=== PATIENT | male | born 1965 | race Caucasian/White ===

== ENCOUNTER 2017-03-21 14:03 | Emergency (ER) | payer OTHER ==
[~2017-03-21] VITALS: Ht 172.7 cm; Wt 87.0 kg
[~2017-03-21 14:03] MED LIST: ASCO500T16 PO; DOXY100C2 PO; SIMV10TA2 PO; ZINC50CA3 PO
[2017-03-21 14:10] VITALS: Ht 172.7 cm; Wt 87.0 kg
[2017-03-21] MEDS ORDERED: MULTTAB5 PO (14:52)
[2017-03-21] MEDS ORDERED: ROSU20TA PO (14:52)
[2017-03-21] MEDS ORDERED: CETI10TA10 PO (14:52)
--- NOTE | 2017-03-21 15:17 | DIAGNOSTIC IMAGING REPORT ---
LEFT KNEE 3 VIEWS, LEFT FEMUR 2 VIEWS ROUTINE CLINICAL HISTORY: Left leg and knee pain. COMPARISON STUDY: None. FINDINGS: No fracture or dislocation within the left femur or left knee. Soft tissues are unremarkable. No significant knee effusion. Cartilage spaces are maintained for age. The visualized pelvic bones are intact. IMPRESSION: No fracture or dislocation within the left femur or left knee. Electronically signed by: Jas Maza M.D. 03/21/2017 3:15 PM Dictated Date/Time: 03/21/2017 3:10 PM
[2017-03-21 16:53] VITALS: BP 144/77; PULSE 91; TEMP 36.9; O2SAT 98
--- NOTE | 2017-03-21 20:37 | EMERGENCY ROOM VISIT NOTE ---
History Report prepared by Marlin: Hailey Vilchis Under the Supervision of: Dr. Michael Meneses D.O. First contact with patient: 14:08 Chief Complaint: FALL Stated Complaint: FALL History of Present Illness The patient is a 51 year old male who presents to the Emergency Room with complaints of persistent left knee pain starting earlier today. He was working at [employer] when he slipped on some water and fell 5 ft to the ground. He landed on his left knee. His knee was numb at first. The pain worsens with movement of his knee. He denies any pain in his head, neck, chest, back, or abdomen. He is not on any blood thinners. He has a history of high cholesterol. He denies any other medical problems. Patient is no other complaints at this time. No loss conscious. He did not hit anything else. Source of History: patient Onset: earlier today Position: knee (left) Quality: other (injury, pain) Timing: other (persistent) Modifying Factors (Worsening): movement Associated Symptoms: + numbness, No abdominal pain, No back pain, No chest pain, No headache, No neck pain Review of Systems See HPI for pertinent positives & negatives. A total of 10 systems reviewed and were otherwise negative. Past Medical & Surgical Medical Problems: (1) Hypercholesteremia Family History No pertinent family history stated. Social History Marital Status: Housing Status: lives with family Occupation Status: employed Current/Historical Medications Scheduled Ascorbic Acid (Ascorbic Acid), 500 MG PO DAILY Cetirizine Hcl (Zyrtec), 10 MG PO DAILY Multiple Vitamins W/ Minerals (Centrum), 1 TAB PO DAILY Rosuvastatin Calcium (Crestor), 20 MG PO DAILY Zinc Acetate (Oral) (Galzin), 50 MG PO DAILY Allergies Uncoded Allergies: Seasonal (Allergy, Mild, unknown, 03/21/17) Physical Exam Vital Signs Date Time Temp Pulse Resp B/P Pulse Ox O2 Delivery O2 Flow Rate FiO2 03/21/17 16:53 36.9 91 18 144/77 98 03/21/17 16:30 91 18 144/77 98 Room Air 03/21/17 14:10 36.9 103 18 150/90 97 Room Air Physical Exam GENERAL: alert, well appearing, well nourished, no distress, non-toxic HEAD: normal cephalic, atraumatic EYE EXAM: normal conjunctiva, PERRL and EOM's grossly intact OROPHARYNX: no exudate, no erythema, lips, buccal mucosa, and tongue normal and mucous membranes are moist EARS: TMs clear b/l NECK: supple, no nuchal rigidity, no adenopathy, non-tender CHEST: stable to compression anteriorly and posteriorly LUNGS: clear to auscultation. Normal chest wall mechanics HEART: no murmurs, S1 normal and S2 normal ABDOMEN: abdomen soft, non-tender, normo-active bowel sounds, no masses, no rebound or guarding. PELVIS: stable to compression anteriorly and posteriorly BACK: Back is symmetrical on inspection and there is no deformity, no midline tenderness, no CVA tenderness. UPPER EXTREMITIES: full active and passive range of motion of all joints without tenderness to palpation LOWER EXTREMITIES: left knee with abrasion to the inferior lateral aspect, no tenderness to the fibular head, no obvious deformity, full ROM of left hip and ankle without tenderness, gross sensation intact, no pain with flexion up to 90 degrees of knee, mild to moderate pain beyond 90 degrees, flexion extension of ankle and EHL intact. NEURO EXAM: Normal sensorium, cranial nerves II-XII grossly intact, normal speech, no gross weakness of arms, no gross weakness of legs. GCS: 15. Medical Decision & Procedures ER Provider Diagnostic Interpretation: Xray results as stated below per my and the radiologist's interpretation: LEFT KNEE 3 VIEWS, LEFT FEMUR 2 VIEWS ROUTINE CLINICAL HISTORY: Left leg and knee pain. COMPARISON STUDY: None. FINDINGS: No fracture or dislocation within the left femur or left knee. Soft tissues are unremarkable. No significant knee effusion. Cartilage spaces are maintained for age. The visualized pelvic bones are intact. IMPRESSION: No fracture or dislocation within the left femur or left knee. Electronically signed by: Jas Maza M.D. 03/21/2017 3:15 PM Dictated Date/Time: 03/21/2017 3:10 PM ED Course ED COURSE: Vital signs were reviewed and showed tachycardic rate. The patients medical record was reviewed The above diagnostic studies were performed and reviewed. ED treatments and interventions as stated above. 1411: The patient was evaluated in room C6. A complete history and physical examination was performed. 1520: Upon reevaluation, the patient is resting comfortably.I discussed my findings with the patient and he understands and agrees with the treatment plan. Based on the patients age, coexisting illnesses, exam and lab findings the decision to treat as an outpatient was made. The patient remained stable while under my care. The patient appeared well at the time of discharge. Medical Decision Differential diagnoses include major intracranial, cervical, spinal, thoracic, abdominal, pelvic and neurologic injury. Fracture, contusion, sprain, strain, laceration, abrasions included as well. Patient is a 51-year-old male that fell at work 5 feet from the air onto his left knee. He denies hitting his head or any loss consciousness. He notes his only pain is on his left knee. No large effusion. His minimal tenderness in the distal femur. No signs of trauma. Exam is completely neurologically intact. X-rays of his knee and left femur showed no obvious fractures. He was discharged with crutches and instructed not to weight-bear until his pain completely resolves. At that point he can weight-bear as tolerated. Patient was discharged follow-up with his primary care doctor. Discussed with Pt concerning signs and symptoms to watch out for. Pt was instructed to follow up with their PCP and discussed with the patient their option to return to the ED at anytime for persistent or worsening symptoms. The appropriate anticipatory guidance and out-patient management, including indications for return to the emergency department, were explained at length to the patient and understood.c Impression Primary Impression: Contusion of knee, left Scribe Attestation The scribe's documentation has been prepared under my direction and personally reviewed by me in its entirety. I confirm that the note above accurately reflects all work, treatment, procedures, and medical decision making performed by me. Departure Information Dispostion Home / Self-Care Referrals Tim Colbert M.D. (PCP) Forms HOME CARE DOCUMENTATION FORM, IMPORTANT VISIT INFORMATION Patient Instructions Contusion Bone, My [facility] Additional Instructions Please follow up with your primary care doctor with in the next 24 hours. Any worsening of your symptoms, please return to the ED immediately. This includes continuous pain over the next 3-5 days, numbness, weakness, increased swelling, or any other concerning signs or symptoms from your standpoint. Please take Motrin or Tylenol as needed for pain. Please use crutches until pain completely resolves and at that point you can start weightbearing as tolerated.
== END 2017-03-21 16:54 | disposition home or self-care (01) ==
LOC: EDBD 14:03 → C.EDC 14:05
DX: S80.02XA Contusion of left knee, initial encounter (principal); W01.0XXA Fall on same level from slipping, tripping and stumbling without subsequent striking against object, initial encounter; E78.00 Pure hypercholesterolemia, unspecified